=== PATIENT | female | born 1950 | race Caucasian/White ===

== ENCOUNTER → 2018-10-20 | Outpatient (CLI) | payer BC ==
[~2018-10-20] MED LIST: AVALIDE PO; CALTRATE-600 W600 MG PO; CRESTOR10 MG PO; ESTROVEN; MVI; RANITIDINE HYD300 MG PO; SYNTHROID0.137 MG PO; ZYRTEC 10MG
== END ==
LOC: MC.RAD 06:47
DX: Z12.31 Encounter for screening mammogram for malignant neoplasm of breast (principal)

== ENCOUNTER → 2019-12-06 | Outpatient (CLI) | payer BC | LOC: MC.RAD 09:15 | DX: Z12.31 Encounter for screening mammogram for malignant neoplasm of breast (principal) ==

== ENCOUNTER → 2021-02-19 | Outpatient (CLI) | payer BC | LOC: MC.RAD 02-17 08:45 | DX: Z12.31 Encounter for screening mammogram for malignant neoplasm of breast (principal) ==

== ENCOUNTER 2021-09-08 10:57 | Outpatient (CLI) | payer BC ==
[2021-09-08] VITALS (13 sets, daily range): BP systolic 151–194; BP diastolic 60–103; PULSE 47–103; TEMP 96.6
[~2021-09-08] VITALS: Ht 165.2 cm; Wt 84.0 kg
[2021-09-08] MEDS ORDERED: MICARDIS HCT 121 TA1 PO (12:05)
[2021-09-08] MEDS ORDERED: SYNTHROID0.1 MG/TAB PO (12:05)
[2021-09-08] MEDS ORDERED: FOSAMAX 70MG TA70 MG PO (12:06)
[2021-09-08] MEDS ORDERED: MOVE FREE JOIN1 EACH PO (12:06)
[2021-09-08] MEDS ORDERED: CRESTOR20 MG PO (12:06)
[2021-09-08] MEDS ORDERED: ZYRTEC 10MG10 MG PO (12:06)
[2021-09-08] MEDS ORDERED: FLONASEALLERGY NS (12:07)
--- NOTE | 2021-09-08 12:12 | NUR ---
Pt c/o feeling short of breath and generally "funny" with onset shortly after start of monoclonal antibody infusion. Infusion stopped at first report of complaints.
--- NOTE | 2021-09-08 12:15 | NUR ---
Pt states symtpoms of feeling "funny" and short of breath improved since infusion stopped. HR has decreased from low 100s at time she first reported symptoms, now in the 80-90s. Respirations even and unlabored. IV benadryl will be administered per protocol for potential allergic reaction. Pt also reports redness and itching to palms of hands, no other skin changes noted to exposed skin at this time.
--- NOTE | 2021-09-08 12:20 | NUR ---
Message left on Dr. Dill's phone when pt c/o potential medication reaction. Dr Dill returns call at this time. Informed IV benadryl has been given and infusion stopped. Updated on pt's status, including improvement in expressed symptoms after infusion was stopped and vital signs. No further orders given at this time. Pt remains on q 15 min BP readings and continuous HR and SPO2 readings.
--- NOTE | 2021-09-08 12:47 | NUR ---
Warm blankets provided for comfort. Pt c/o feeling cold and shakey. Shortness of breath and itching and redness to palms of hands improved.
--- NOTE | 2021-09-08 13:21 | NUR ---
Infusion restarted at rate of 100ml/hr after previous symptoms of shortness of breath, feeling shakey and cold, and redness and itching to palms had resolved. Pt states she still feels anxious, and knows this is affecting her blood pressure readings, but she feels comfortable restarting the infusion. This nurse will remain with pt during infusion.
--- NOTE | 2021-09-08 13:32 | NUR ---
No complaints or symptoms of reaction after restarting infusion. Rate increased at this time to 150 ml/hr. Pt resting with eyes closed, responds briskly to verbal stimuli, states she is try to concentrate on her breathing and relaxing.
--- NOTE | 2021-09-08 13:45 | NUR ---
Infusion completed. Pt shows no further signs of potential medication reaction. She is resting comfortably, denies complaints or needs at this time. She will remain in dept for 1 hr observation period. Call light in reach.
--- NOTE | 2021-09-08 14:45 | NUR ---
Pt tolerated 1 hr obs period without issue. States she is feeling much better, no further symptoms of reaction or complaints voiced. INT DC'd with catheter intact. Return precautions reviewed, and she expresses understanding. She is escorted out to ED entrance with steady gait.
== END 2021-09-08 16:31 | disposition home or self-care (01) ==
LOC: EUO 10:57
DX: U07.1 COVID-19 (principal); E66.9 Obesity, unspecified; I51.9 Heart disease, unspecified
CPT/HCPCS: J1200; M0245

== ENCOUNTER → 2022-03-08 | Outpatient (CLI) | payer BC ==
[~2022-03-08] MED LIST changes: +CRESTOR20 MG PO; +FLONASEALLERGY NS; +FOSAMAX 70MG TA70 MG PO; +MICARDIS HCT 121 TA1 PO; +MOVE FREE JOIN1 EACH PO; +SYNTHROID0.1 MG/TAB PO; +ZYRTEC 10MG10 MG PO
== END ==
LOC: MC.RAD 03-03 09:30
DX: Z12.31 Encounter for screening mammogram for malignant neoplasm of breast (principal)

== ENCOUNTER → 2024-05-14 | Outpatient (CLI) | payer MEDICARE | LOC: MC.RAD 07:22 | DX: Z12.31 Encounter for screening mammogram for malignant neoplasm of breast (principal) ==